=== PATIENT | male | born 1970 ===

== ENCOUNTER → 2023-10-07 10:12 | Outpatient (CLI) | payer OTHER, SELFPAY ==
--- NOTE | 2023-10-07 13:29 | DI.RAD_ITS ---
Exam(s) XR LUMBAR SPINE COMPLETE EXAM: XR LUMBAR SPINE COMPLETE CLINICAL HISTORY: [id number],LT L4 RADICULOPATHY,M54.16. TECHNIQUE: 2D digital imaging was performed. Five views. COMPARISON: No exams were available for comparison FINDINGS: BONES: No fracture or destructive lesion. Vertebral body heights are maintained. Facet hypertrophy identified at L 5 S1. No spondylolysis. DISKS: Severe narrowing of the L5-S1 disc space. The remaining intervertebral disc spaces are maintai leidy. ALIGNMENT: Mild levoscoliosis. SOFT TISSUE: Normal. IMPRESSION: Degenerative disc changes at L5-S1. DATA REPOSITORY: RADIATION DOSE DELIVERED:
== END ==
PROVIDERS: Visit Provider Physician Assistant
DX: M51.37 Other intervertebral disc degeneration, lumbosacral region (principal)
CPT/HCPCS: 72110